=== PATIENT | female | born 1990 | race Caucasian/White ===

== ENCOUNTER → 2021-11-28 09:37 | Outpatient (BNVA) | payer MEDICAID, SELFPAY | PROVIDERS: Visit Provider Internal Medicine Rheumatology | DX: M15.9 Polyosteoarthritis, unspecified (principal); R76.8 Other specified abnormal immunological findings in serum; M35.00 Sjogren syndrome, unspecified; Z11.59 Encounter for screening for other viral diseases; Z11.1 Encounter for screening for respiratory tuberculosis; Z79.899 Other long term (current) drug therapy; M79.7 Fibromyalgia | CPT/HCPCS: 80076; 82306; 82550; 82565; 85651; 86140; 86200; 86235; 86480; 86704; 86803; 87340; 99204 ==